=== PATIENT | female | born 1990 | race Caucasian/White ===

== ENCOUNTER 2024-08-16 20:47 | Emergency (ER) | payer OTHER, SELFPAY ==
[2024-08-16 21:19] VITALS: BP 135/81; PULSE 84; RESP 19; TEMP 36.6; O2SAT 99; BMI 31.2
== END 2024-08-17 01:55 | disposition left against medical advice (07) ==
PROVIDERS: Emergency Provider Emergency Medicine
DX: M79.645 Pain in left finger(s) (principal)
CPT/HCPCS: 99281; 99284

== ENCOUNTER 2025-01-04 18:37 | Emergency (ER) | payer OTHER, SELFPAY ==
--- NOTE | ~2025-01-04 | CT_ITS ---
CLINICAL HISTORY: severe generalized abdominal pain and tenderness CT abdomen and pelvis with contrast Comparison: None provided Findings: No consolidation or effusion. The gallbladder and solid organs are within normal limits. No renal stones. No bowel obstruction, pneumoperitoneum, or pneumatosis. Normal appendix. There are a few scattered colonic diverticula, but no evidence of diverticulitis. Uterus and adnexa are unremarkable. No lytic or blastic bone lesions. No ascites. No retroperitoneal adenopathy. IMPRESSION: No acute findings. This document has been electronically signed by: Bhanu Rodriguez MD on 01/04/2025 21:41:32
[2025-01-04 18:48] VITALS: BP 130/88; PULSE 64; RESP 20; TEMP 37.1; O2SAT 99; BMI 26.4
[2025-01-04 19:10] LABS: MANUAL DIFF FLAG NO
[2025-01-04 19:11] LABS: Hematocrit 35.1 % (37.0-47.0); Hemoglobin 11.9 g/dl (12.0-16.0); Imm Gran Abs Auto 0.01 X10*3/uL (0.00-0.03); Imm Gran Pct Auto 0.2 % (0.0-0.4); Lymphocytes Absolute Auto 2.9 X10*3/uL (1.2-4.9); Mean Corpuscular HGB Conc 33.9 g/dl (31.0-35.0); Mean Corpuscular Hemoglobin 26.3 pg (27.0-33.0); Mean Corpuscular Volume 77.5 fL (80.0-98.0); NRBC Abs Auto 0.000 X10*3/uL (0.0-0.012); NRBC Pct Auto 0.0 /100WBC (0.0-0.2); Platelet Count 323 X10*3/uL (160-400); Red Blood Count 4.53 X10*6/uL (4.20-5.50); White Blood Count 5.7 X10*3/uL (4.8-10.8)
[2025-01-04 19:26] LABS: Alanine Aminotransferase 13 U/L (0-31); Albumin Level 4.1 g/dL (3.5-5.0); Alkaline Phosphatase 50 U/L (39-117); Anion Gap 9 (12-20); Aspartate Amino Transferase 19 U/L (5-31); Blood Urea Nitrogen 10 mg/dL (9-16); Calcium 8.2 mg/dL (8.4-10.2); Carbon Dioxide 23 mmol/L (22-29); Chloride 111 mmol/L (96-108); Creatinine Clr Calc Pharmacy 97.2; Estimated Glomerular Filt Rate > 60; Lipase 17 U/L (8-78); Potassium 3.3 mmol/L (3.3-5.1); Sodium 140 mmol/L (135-145); Total Protein 6.7 g/dL (6.5-8.0)
--- NOTE | 2025-01-04 19:44 | ED_ITS ---
HPI - General Adult General Chief complaint: Abdominal Pain Stated complaint: abd pain radiates to back Time Seen by Provider: 01/04/25 19:44 History of Present Illness ED Provider: Claudio ROACH narrative: The patient is a 34-year-old female who comes to the emergency room by ambulance stating that she developed severe pain in her abdomen yesterday. She feels the pain mostly in the right upper quadrant radiating to her back. She denies ever having had pain like this before. She has had nausea and vomiting. She does not think she is . Related Data Previous Rx's ?Medication ?Instructions ?Recorded famotidine 40 mg tablet 40 mg PO DAILY #30 tabs 12/07 07/01 ondansetron 4 mg disintegrating 4 mg PO Q6H PRN nausea and 01/04/25 tablet vomiting #10 tabs Allergies Allergy/AdvReac Type Severity Reaction Status Date / Time No Known Allergies Allergy Verified 01/04/25 18:49 [facility] Social History Social History Alcohol intake: former Substance Use Type: Marijuana Physical Exam ED Vital Signs: Vital Signs - 24 hr 01/04/25 18:48 01/04/25 21:18 01/04/25 22:12 Temperature 98.8 F 98 F Pulse Rate 64 65 65 Respiratory Rate 20 20 20 Blood Pressure 130/88 104/58 L 104/58 L Pulse Oximetry 99 99 99 Oxygen Delivery Method Room Air Room Air Room Air BMI result Body Mass Index 26.4 Const Other: The patient was lying prone on the stretcher. She had her eyes closed. She responded to verbal stimuli. She said that she was in a great deal of discomfort. She was occasionally moaning in discomfort. HENMT Other: The face is symmetrical. ?Mucous membranes moist. Eyes Other: Pupils are round equal, conjunctivae are clear, extraocular movements intact Neck Neck: Yes normal visual inspection and Yes full ROM Resp Effort & Inspection: normal respiratory effort Auscultation: clear to auscultation bilaterally Cardio Rate: regular rate Rhythm: regular rhythm Heart sounds: S1 normal heart sound present and S2 normal heart sound present GI Other: There was diffuse abdominal tenderness. I do not really feel there was any focal abdominal tenderness. No rebound or guarding. Skin Other: The skin is dry and unremarkable Neuro Other: The patient seemed distracted by her discomfort. She tended to keep her eyes closed. However she did not seem to have an altered mental status. Her cranial nerves seemed intact. She moves her extremities symmetrically. Extrem Other: There is no calf swelling or tenderness. No asymmetry. No peripheral edema. Medications Administered Discontinued Medications Generic Name Dose Route Start Last Admin Trade Name Funmilayo PRN Reason Stop Dose Admin Droperidol 1.25 mg 01/04/25 19:57 01/04/25 20:32 Droperidol 5 Mg/2 Ml Vial IVPUSH 01/04/25 19:58 1.25 mg ONCE ONE Administration Sodium Chloride 1,000 mls @ 999 mls/hr 01/04/25 20:00 01/04/25 22:12 Ns IV 01/04/25 21:00 Infused .Q1H1M JUDI Infusion Lactated Ringer's 1,000 mls @ 999 mls/hr 01/04/25 21:15 01/04/25 21:49 Lr IV 01/04/25 22:15 Not Given .Q1H1M JUDI Iohexol 100 ml 01/04/25 20:51 01/04/25 20:51 Iohexol 350 Mg/Ml 100 Ml Infus..Btl IV 01/04/25 20:52 85 ml ONCE ONE Administration Ketorolac Tromethamine 15 mg 01/04/25 19:57 01/04/25 20:32 Ketorolac Tromethamine 15 Mg/Ml Vial IVPUSH 01/04/25 19:58 15 mg ONCE ONE Administration Medical Decision Making Medical Decision Making [facility] Narrative: The patient is a 34-year-old woman who arrived by ambulance complaining of abdominal pain. She had a very histrionic presentation and was moaning loudly and pain. Her abdominal exam was very nonspecific. Labs are unremarkable with a normal white blood count with a lymphocyte predominance. Normal CRP. Negative test. Normal lipase. Normal LFTs. Urinalysis shows no ketones. No blood. She was treated symptomatically with IV ketorolac and droperidol. Also IV fluids. Given the degree of the the patient's reported pain I ordered a CT scan of the abdomen and pelvis that was negative. When I went to discuss the results with the patient she announced that she wanted to be discharged. She was therefore discharged with instructions to follow up with the regular doctor. I suspect that this may has been an episode of cannabis hyperemesis. Lab Data 01/04/25 19:06 01/04/25 19:06 Labs: Lab Results 01/04/25 01/04/25 Range/Units 19:06 22:00 WBC 5.7 (4.8-10.8) X10*3/uL RBC 4.53 (4.20-5.50) X10*6/uL Hgb 11.9 L (12.0-16.0) g/dl Hct 35.1 L (37.0-47.0) % MCV 77.5 L (80.0-98.0) fL MCH 26.3 L (27.0-33.0) pg MCHC 33.9 (31.0-35.0) g/dl RDW 13.6 (11.0-16.0) % Plt Count 323 (160-400) X10*3/uL MPV 8.9 L (9.4-12.3) fL Immature Gran % (Auto) 0.2 (0.0-0.4) % Neut % (Auto) 37.9 L (45-73) % Lymph % (Auto) 51.8 H (20-40) % [place] % (Auto) 8.6 (2-11) % Eos % (Auto) 1.1 (0-4) % Baso % (Auto) 0.4 (0-2) % Lymph # (Auto) 2.9 (1.2-4.9) X10*3/uL [place] # (Auto) 0.5 (0.1-1.2) X10*3/uL Eos # (Auto) 0.1 (0.0-0.4) X10*3/uL Baso # (Auto) 0.0 (0.0-0.2) X10*3/uL Abs Immat Gran (auto) 0.01 (0.00-0.03) X10*3/uL Absolute Neuts (auto) 2.2 (2.0-8.3) x10*3/uL Absolute Nucleated RBC 0.000 (0.0-0.012) X10*3/uL Nucleated RBC % (auto) 0.0 (0.0-0.2) /100WBC Sodium 140 (135-145) mmol/L Potassium 3.3 (3.3-5.1) mmol/L Chloride 111 H (96-108) mmol/L Carbon Dioxide 23 (22-29) mmol/L Anion Gap 9 L (12-20) BUN 10 (9-16) mg/dL Creatinine 0.87 (0.5-1.4) mg/dL Estim Creat Clear Calc 97.2 Estimated GFR > 60 Random Glucose 85 (60-115) mg/dL Calcium 8.2 L (8.4-10.2) mg/dL Total Bilirubin 0.2 (0.0-1.0) mg/dL AST 19 (5-31) U/L ALT 13 (0-31) U/L Alkaline Phosphatase 50 (39-117) U/L C-Reactive Protein 0.32 (< or = 0.50) mg/dL Total Protein 6.7 (6.5-8.0) g/dL Albumin 4.1 (3.5-5.0) g/dL Lipase 17 (8-78) U/L Beta HCG, Quant < 2 mIU/mL Urine Color Yellow Urine Appearance Clear Urine pH 8.5 (5.0-9.0) Ur Specific [place] >= 1.030 H (1.005-1.025) Urine Protein Negative (Neg-Trace) mg/dL Urine Glucose (UA) Negative (Negative) mg/dL Urine Ketones Negative (Negative) mg/dL Urine Blood Negative (Negative) Urine Nitrite Negative (Negative) Ur Leukocyte Esterase Trace H (Negative) Urine RBC 0-2 (0-2) /HPF Urine WBC 0-5 (0-5) /HPF Ur Squamous Epith Cells 3-5 (0-2) /HPF Urine Bacteria None Seen (None Seen) Hyaline Casts 0-2 (0-2) /LPF Discharge Plan Discharge Clinical Impression: Abdominal pain, Vomiting Patient Disposition: Home, Self-Care Additional Instructions: Your testing in the emergency room today seems very reassuring. No dangerous process seems to be at work. Your symptoms might be related to a stomach acid problem. I have sent a prescription for a medication called famotidine to your pharmacy. This medication reduce his stomach acid production. I would recommend taking this medication daily. I have also sent a prescription for a nausea medication. You may use ondansetron every 6 hours as needed for nausea. Please follow up with your regular doctor soon to discuss this episode further. Also please be aware that sometimes marijuana use can cause significant unpleasant abdominal symptoms. Return to the emergency room if significantly worse. Prescriptions: New famotidine 40 mg tablet 40 mg PO DAILY Qty: 30 0RF ondansetron 4 mg tablet,disintegrating 4 mg PO Q6H PRN (Reason: nausea and vomiting) Qty: 10 0RF Referrals: Antonio Gonzalez III, MD [Primary Care Provider, Medical] Interventions: ED Discharge Assessment Last Done: 01/04/25 22:12 Discharge Date/Time: 01/04/25 22:12 Print Language: Pakistani
[2025-01-04] MEDS: iohexoL 350 MG/ML 100 ML INFUS..BTL IV (20:51)
[2025-01-04 21:18] VITALS: BP 104/58; PULSE 65; RESP 20; O2SAT 99
[2025-01-04 22:11] LABS: Appearance Urine Clear; Glucose Urine UA Negative (Negative); PH 8.5 (5.0-9.0); Specific Gravity - Urine >= 1.030 (1.005-1.025); UMIC TRIGGER UACC YES
[2025-01-04 22:12] VITALS: BP 104/58; PULSE 65; RESP 20; TEMP 36.6; O2SAT 99
== END 2025-01-04 22:12 | disposition home or self-care (01) ==
PROVIDERS: Emergency Provider Emergency Medicine; PCP Internal Medicine
DX: R10.11 Right upper quadrant pain (principal); R11.2 Nausea with vomiting, unspecified; M54.50 Low back pain, unspecified; R10.2 Pelvic and perineal pain; Z79.899 Other long term (current) drug therapy
CPT/HCPCS: 36415; 74177; 80053; 81001; 83690; 84702; 85025; 86140; 96361; 96374; 96375; 99284; 99285; J1790; J1885; Q9967

== ENCOUNTER → 2025-01-04 20:28 | Outpatient (BNV) | payer OTHER, SELFPAY | PROVIDERS: Emergency Provider Emergency Medicine; PCP Internal Medicine; Visit Provider Radiology Diagnostic Radiology | DX: R10.84 Generalized abdominal pain (principal) | CPT/HCPCS: 74177 ==

== ENCOUNTER 2025-01-17 10:32 | Outpatient (AMB) | payer OTHER, SELFPAY ==
--- NOTE | 2025-01-17 10:57 | A.OFFVIS_ITS ---
Intake Visit Reasons: PNES, Migranes Allergies No Known Allergies Allergy (Verified 01/04/25 18:49) Medication List - Last Reconciled 01/17/25 by Adriane Bunn MD amitriptyline 10 mg PO BEDTIME ondansetron 4 mg PO Q6H PRN HPI Comments Details: This a 34-year-old womangetting headaches daily or every other day. Unable to cope with things. Needing a home [employer]. She started having spells which she calls seizures in 2017 and was finally diagnosed with the nonepileptic seizures in 2019.? She had MRIs, EEG, 24-hour EEG, ?and inpatient monitoring.? She was rec ently on Trileptal which made her feel worse and it has been stopped.? She says that she has the spells a few times a month where she feels ill when she wakes up and feels run down and tired and unfocused, has trouble with her thought processes,? and then during her so-called seizures, she has tensing up of her body shaking, twitching,? convulsing and can't talk.? Her jaw clenches, her right eye shuts?and her head feels like it's been hit by a hammer.? She can't read or understand.? The last one occurred 4 days ago.? They can be triggered by stress, loud noises,?and ?stimulation.? She also has migraine headaches which are quite disabling making her stay in bed for a day and is occur every 7-14 days.? She has no prescription for it.? Migraines started when she was about 16 years old.? They can be triggered by stress.? They're associated with photophobia, sonophobia, and intense nausea making them nonfunctional. She did not have anything done. Says she needs a [employer] to get things done. Has not started any meds. [facility] Medical History (Updated 01/17/25 @ 10:59 by Adriane Bunn MD) Memory change Migraine Social History Alcohol intake: former Substance Use Type: Marijuana Review of Systems Const Details: Sleep:? Difficulty getting to sleepadmits.? Difficulty maintaining sleepadmits.? Urge to move legsdenies.? Teeth grindingdenies.? Shouting or Kicking during sleep denies.? Abnormal behavior during sleepdenies.? Excessive sleepadmits.? Snoring denies.? Daytime sleepinessdenies. ???General/Constitutional:? Change in appetitedenies.? Chillsdenies.? Fatigueadmits.? Feverdenies.? Weight gaindenies.? Weight lossadmits. ???Ophthalmologic:? Blurred visiondenies.? Diminished visual acuitydenies. ???ENT:? Stuffinessdenies.? Decreased hearingadmits.? Dry mouthdenies.? Ear paindenies.? Nosebleeddenies.? Ringing in the earsadmits.? Sinus paindenies.? Sore throat denies.? Swollen glandsdenies. ???Endocrine:? Cold intolerancedenies.? Excessive thirstdenies.? Frequent urinationdenies.? Heat intolerancedenies. ???Respiratory:? Shortness of breathadmits.? Chest painadmits.? Coughdenies. ???Breast:? Breast lumpdenies.? Nipple dischargedenies. ???Cardiovascular:? Chest pain at restdenies.? Chest pain with exertiondenies.? Claudicationdenies .? Dizzinessdenies.? Fluid accumulation in the legsdenies.? Irregular heartbeat denies.? Palpitationsdenies. ???Gastrointestinal:? Abdominal paindenies.? Constipationdenies.? Diarrheadenies.? Difficulty swallowingdenies.? Heartburndenies.? Nauseaadmits.? Rectal bleedingdenies. ???Hematology:? Easy bruisingadmits.? Prolonged bleedingdenies. ???Genitourinary:? Frequent urinationdenies.? Urgencydenies.? Incontinencedenies.? Erectile Dysfunctiondenies. ???Musculoskeletal:? Neck painadmits.? Back painadmits.? Muscle achesadmits.? Painful jointsadmits.? Sciaticadenies.? Weaknessdenies. ???Podiatric:? Difficulty walkingdenies.? Foot numbnessdenies. ???Neurologic:? Difficulty swallowingdenies.? Balance difficultyadmits.? Coordinationnormal.? Difficulty speakingdenies.? Dizzinessadmits.? Faintingadmits.? Gait abnormality denies.? Headacheadmits.? Loss of strengthdenies.? Loss of use of extremity denies.? Low back paindenies.? Memory lossadmits.? Seizuresadmits.? Ticsdenies.? Tingling/Numbnessadmits.? Transient loss of visiondenies.? Tremordenies. ???Psychiatric:? Anxietyadmits.? Auditory/visual hallucinationsadmits.? Delusionsadmits.? Depressed moodadmits.? Stressorsadmits.? Substance abusedenies.? Suicidal thoughtsadmits. Physical Exam Neuro Other: Neurological: Abnormal neurological findings:??none.?Mental Status:??alert and oriented X 3,?Normal attention, orientation, memory and affect.?Cranial Nerves:??Pupils are equal, round and reactive to light. Fundoscopy shows normal disc bilaterally. External occular muscles are intact. Visual cotto are full, no ptosis. Face is symmetrical, no facial weakness or droop. Facial sensations are normal. Tongue protrudes in midline. Palate elevates symmetrically. Shoulder shrugging is normal..?Motor Examination:??Normal muscle tone, bulk and strength,?No atrophy or fasciculations,?No drift of the extended upper extremities,?Deep tendon reflexes are 2+?,?Plantars are flexor?.?Motor Strength:?Proximal Muscles (out of 5):5Distal Muscles (out of 5):5Neck Flexors (out of 5):5Neck Extensors (out of 5):5Deltoid (out of 5):5Biceps (out of 5):5Triceps (out of 5):5Serratus Anterior (out of 5):5Wrist Extensors (out of 5):5APB (out of 5):5Finger Spread (out of 5):5Ileopsoas (out of 5):5Quadriceps (out of 5):5Hamstrings (out of 5):5Tibialis Anterior (out of 5):5Peronei (out of 5):5EDB (out of 5):5Gastrocnemius (out of 5):5Straight Leg Raising:??90 degrees.?Sensory Exam:??Normal light touch, temperature, pinprick, vibration and joint-position sensations?,?Rhomberg sign is absent.?Coordination:??no ataxia,?no titubation,?[id number], [id number] test and rapid alternating movements were normal.?Gait Exam:??Within normal limits.?Cerebellar Signs:??[id number] and [id number] is normal,?no dysdiadochokinesia?.?Extrapyramidal System:??No tremor, rigidity with normal facial expressions,?No bradykinesia, no bradyphrenia. Normal arm swing and posture. No propulsion or retropulsion.?Speech:??Normal,?no dysphasia or dysarthria..? Mini Mental Status Exam: Level of Consciousness:??Alert.?Orientation:??Knows correct year, month, date, day and season,?Knows correct city, county and state. Knows correct location and floor.?Registration:??Able to register 3 objects.?Attention:??Serial 7's performed accurately.?Recall:??Able to recall 3 out of 3 objects.?Language:??Normal spontaneous speech, fluency, repetition,naming, comprehension, reading and writing.?Total Score:??30/30.? General Examination: GENERAL APPEARANCE:??normal,?in no acute distress .?HEAD:??normocephalic,?atraumatic.?EYES:??sclera non-icteric,?conjunctiva clear.?EARS:??auditory canal clear,?tympanic membrane intact, clear.?NOSE:??no lesions.?ORAL CAVITY:??gums normal,?mucosa moist,?no lesions.?THROAT:??clear.?NECK/THYROID:??no cervical lymphadenopathy,?thyroid normal,?neck supple, full range of motion,?no carotid bruit.?SKIN:??no rashes,?no significant birthmarks.?HEART:??S1, S2 normal,?no murmurs.?LUNGS:??clear anteriorly and posteriorly.?CHEST:??no gross rib deformity,?clear to auscultation.?BACK:??normal exam of spine.?EXTREMITIES:??no edema.?PERIPHERAL PULSES:??normal.?PSYCH:??alert, oriented,?cognitive function intact,?cooperative with exam.? 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 Start SUMAtriptan Succinate Tablet, 100 MG, 1 tablet at onset of migraine , may take second dose at least 2 hours after first dose up to 2 tablets per day as needed, Orally, as directed, 30 days, 9, Refills 5 ??? Start Ondansetron HCl Tablet, 4 MG, 1 tablet as needed for nausea, Orally, Once a day As needed, 30 days, 20 Tablet Medications: New topiramate 50 mg PO BID 60 tabs 4RF amitriptyline 20 mg (2 x 10 mg) PO BEDTIME 60 tabs 5RF sumatriptan succinate do not exceed 2 doses per 24 hrs 100 mg PO Q4H PRN 9 tabs 5RF Migraine Headache 30 days Coding Level of Care Code Est Pt Level 4 (42036) Diagnoses Non-epileptic convulsion R56.9 Migraine G43.909 Memory change R41.3
== END 2025-01-17 11:09 | disposition home or self-care (01) ==
LOC: HO.HSM 10:32
PROVIDERS: PCP Internal Medicine; Referring Provider Internal Medicine; Visit Provider Psychiatry & Neurology Neurology
DX: R56.9 Unspecified convulsions (principal); G43.909 Migraine, unspecified, not intractable, without status migrainosus; R41.3 Other amnesia
CPT/HCPCS: 99214

== ENCOUNTER → 2025-01-17 10:32 | Outpatient (BNVA) | payer OTHER, SELFPAY | PROVIDERS: PCP Internal Medicine; Referring Provider Internal Medicine; Visit Provider Psychiatry & Neurology Neurology | DX: G43.009 Migraine without aura, not intractable, without status migrainosus (principal); R41.3 Other amnesia; R56.9 Unspecified convulsions | CPT/HCPCS: 99212 ==

== ENCOUNTER 2025-04-20 09:56 | Outpatient (AMB) | payer OTHER, SELFPAY ==
--- OUTSIDE RECORDS SUMMARY | 2025-04-17 08:45 | XMS_ITS | Encounter Summary ---
Author Organization [facility] Address [address] [place] [address] Care Team Providers Care Flower Shop Laborer/Designer Name Role Phone Antonio Gonzalez MD Primary Care Provider [phone] Reason for Visit * Therapy (Routine) - Authorized Specialty Diagnoses / Procedures Referred By Medina plata Referred To Contact Occupational Therapy Diagnoses Pain of right hand Bilateral hand numbness Emma Jean Baptiste PA Phone: tel: fax: Referral ID Status Reason Start Date Expiration Date Visits Requested Visits Authorized [id number] Authorized Consult and Treat 03/30/2025 03/30/2026 20 20 Encounter Details Date Type Department Care Team ([facility] st Contact Info) Description 04/17/2025 8:45 AM EST Treatment [facility] Occupational Therapy [address] [place] [phone] Cookie Otero COTA Pain of right hand (Primary Dx); Bilateral hand numbness Social History Tobacco Use Types Packs/Day Years Used Date Smoking Tobacco: Former Cigarettes 30.7 S tarted: 1994 Smokeless Tobacco: Never Alcohol Use Standard Drinks/Week Comments Yes 3.3 (1 standard drink = 0.6 oz p ure alcohol) Housing Instability Answer Date Recorde d Are you worried that in the next 2 months you may not have stable housing? No 06/13/2024 Health Literacy Answer Date Recorded How often do you need to hav e someone help you when you read instructions, pamphlets, or other written material from your doctor or pharmacy? Sometimes 06/13/2024 Caregiver: How often do you need to have someone help you when you read instructions, pamphlets, or other written material from your doctor or pharmacy? Not on file 06/13/2024 Financial Risk Answer Date Recorded How hard is it for you to pa y for the very basics like food, housing, medical care, and air conditioning / heating? Somewhat hard 06/13/2024 Transportation Answer Date Recorded Has the lack of transportati on kept you from meetings, work, or from getting things needed for daily living? Yes Has the lack of transportati on kept you from medical appointments or from getting medications? Yes 06/13/2024 Social Isolation Answer Date Recorded How often do you feel lonely or isolated from those around you? Sometimes 06/13/2024 Food Risk Answer Date Recorded Within the past 12 months we worried whether our food would run out before we got money to buy more. Never true 06/13/2024 Within the past 12 months th e food we bought just didn't last and we didn't have money to get more. Never true 06/13/2024 Dependent Care Answer Date Recorded Do you need help finding or paying for care for your loved ones. For example, child therapist or elderly care for an older adult? No 06/13/2024 Education Answer Date Recorded Do you think completing more education or training, like finishing a GED, going to college, or learning a trade, would be helpful for you? Yes 06/13/2024 Employment and Income Answer Date Recor ded During the last four weeks, have you been actively looking for work? No 06/13/2024 Living Situation Answer Date Recorded What is your living situation? Unrecognized valu e 06/13/2024 Comments No Sex and Gender Information Value Date Recorded Sex Assigned at Female 01/23/2025 11:01 AM EDT Legal Sex Female 2:55 AM EST Gender Identity Female 01/23/2025 11:01 AM EDT Sexual Orientation Straight 03/30/2025 12 :04 PM EDT documented as of this encounter Progress Notes * BENI Dumont - 04/17/2025 8:45 AM EST [facility] - Outpatient OCCUPATIONAL THERAPY DAILY TREATMENT NOTE Date: 04/17/2025 Visit Number: 3 Patient Name: Laura Joshua : 1990 Age: 34 y.o. Gender: female Diagnosis: No diagnosis found. Date of Onset: 03/30/2025 Referring Provider: Emma Jean Baptiste PA Insurance: Payor: [employer] [facility] [email or web address] MEDICARE / Plan: [facility] [employer] CARE / Product Type: *No Product type* / Patient identified by: BENI Dumont Language: Speaks and understands Icelandic as preferred language with no guest service agent required Allergies: is allergic to acerola and other. Precautions: Pt has a seizure history SUBJECTIVE Subjective Report: The pain varries Pain: 09/14 TREATMENT INTERVENTION Procedures: 50% pulsed US done with .5 w/cm2 to decrease inflammation and promote healing at the thumb MP area There ex AROM for thumb abd, ext, circles and opposition 2X10 added to HEP Fluidotherapy for 15 min for ROM and desensitization Pain Reassessment: unchanged Assessment/Response To Treatment: Good Patient Education: Education provided: Yes Education Provided To: Patient utilizing Explanation mode(s) of education Response to Education: Good PLAN POC Development/Review: No Change in the Plan of Care; Participants: Patient Equipment Recommended: none; Equipment Provided: none Total Treatment Time: 45 Documentation completed by BENI Dumont * BENI Dumont - 04/17/2025 8:45 AM EST [facility] - Outpatient OCCUPATIONAL THERAPY DAILY TREATMENT NOTE Date: 04/17/2025 Visit Number: 3 Patient Name: Laura Joshua : 1990 Age: 34 y.o. Gender: female Diagnosis: ICD-10-CM ICD-9-CM 1. Pain of right hand M79.641 729.5 2. Bilateral hand numbness R20.0 782.0 Date of Onset: 03/30/2025 Referring Provider: Emma Jean Baptiste PA Insurance: Payor: [employer] MEDICARE / Plan: [facility] ONE CARE / Product Type: *No Product type* / Patient identified by: BENI Dumont Language: Speaks and understands Icelandic as preferred language with no guest service agent required Allergies: is allergic to acerola and other. Precautions: Pt has a seizure history SUBJECTIVE Subjective Report: The pain varries Pain: 4/10 TREATMENT INTERVENTION Procedures: 50% pulsed US done with .5 w/cm2 to decrease inflammation and promote healing at the thumb MP area There ex AROM for thumb abd, ext, circles and opposition 2X10 added to HEP Fluidotherapy for 15 min for ROM and desensitization Pain Reassessment: unchanged Assessment/Response To Treatment: Good Patient Education: Education provided: Yes Education Provided To: Patient utilizing Explanation mode(s) of education Response to Education: Good PLAN POC Development/Review: No Change in the Plan of Care; Participants: Patient Equipment Recommended: none; Equipment Provided: none Total Treatment Time: 45 OT Therapeutic Procedures Time Entry Therapeutic Exercise Time Entry: 37 OT Modalities Time Entry Ultrasound Time Entry: 8 Documentation completed by BENI Dumont documented in this encounter Plan of Treatment Upcoming Encounters Date Type Department Care Team (Late st Contact Info) Description 04/24/2025 8:45 AM EST Treatment [facility] Occupational Therapy [address] [place] [phone] Cookie Otero COTA 04/26/2025 1:00 PM EST Treatment [facility] Occupational Therapy [address] [phone] Pat Black OT 06/04/2025 10:00 AM EST Office Visit Orthopedic Surgery [facility] [address] [phone] Emma Jean Baptiste PA [address] [phone] 06/18/2025 1:30 PM EST Office Visit Adult Medicine [facility] [address] [place] [phone] Keri Saba LOCOMOTIVE FIRER [address] [place] [address] documented as of this encounter Goals Goal Patient Goal Type Associated Problems Recent Progress Patient-Stated? Author OT pt goal General Yes Pat Black OT Note: To reduce pain in her right thumb area and gain strength to perform her job and home tasks easier and more efficiently OT STGs 6 visits General On track( 025 2:18 PM EST) Yes Pat Black OT Note: 1- pt will report increased function and decrease in symptoms as seen by at least a 10 point improvement in her QD score 2- pt will demo at least 5# increase in destination imagination coordinator strength B hands to be able to open containers easier 3- pt will demo a 3# increase in her pinch strength in B hands to be able to open packages 4- pt will demo at least one muscle grade increase throughout R UE to be able to reach and put clothes up on the rack. OT LTGs 12 visits General Yes Pat Black OT Note: 1- pt will report increased function and decrease in symptoms as seen by a QD of less than or equal to 20 2- pt will demo at least 25# destination imagination coordinator strength in her R and 35# with her L hand to be able to open containers and packages 3- pt will demo a #5 pound increase in her pinch strength to be able to open the pants hangers to hang clothing at work 4- pt will demo at adequate strength in R UE to be able to hang clothes and put dishes away with her R UE documented as of this encounter Visit Diagnoses Diagnosis Pain of right hand- Primary Bilateral hand numbness Disturbance of skin sensation documented in this encounter Additional Health Concerns Assessment Noted Time PHQ-9 Depression Total Score: 18 025 9:23 AM EST documented as of this encounter Care Teams Flower Shop Laborer/Designer Relationship Specialty Start Date End Date Antonio Gonzalez MD [address] [place] [phone] PCP - General Internal Medicine 01/13/19 documented as of this encounter
--- OUTSIDE RECORDS SUMMARY | 2025-04-19 08:45 | XMS_ITS | Encounter Summary ---
Author Organization [facility] Address [address] [place] [address] Care Team Providers Care Medical Office Scheduler Name Role Phone Antonio Gonzalez MD Primary Care Provider [phone] Reason for Visit * Therapy (Routine) - Authorized Specialty Diagnoses / Procedures Referred By Medina plata Referred To Contact Occupational Therapy Diagnoses Pain of right hand Bilateral hand numbness Emma Jean Baptiste PA Phone: tel: fax: Referral ID Status Reason Start Date Expiration Date Visits Requested Visits Authorized [id number] Authorized Consult and Treat 03/30/2025 03/30/2026 20 20 Encounter Details Date Type Department Care Team ([facility] st Contact Info) Description 04/19/2025 8:45 AM EST Treatment [facility] Occupational Therapy [address] [place] [phone] Cookie Otero COTA Pain of right hand [...] care for your loved ones. For example, early childhood assistant or elderly care for an older adult? [...] encounter Progress Notes * BENI Dumont - 04/19/2025 8:45 AM EST [facility] - Outpatient OCCUPATIONAL THERAPY DAILY TREATMENT NOTE Date: 04/19/2025 Visit Number: 4 Patient Name: Laura Joshua : 1990 Age: 34 y.o. Gender: female Diagnosis: No diagnosis found. Date of Onset: 03/30/2025 Referring Provider: Emma Jean Baptiste PA Insurance: Payor: [facility] MEDICARE / Plan: [facility] ONE CARE / Product Type: *No Product type* / Patient identified by: BENI Dumont Language: Speaks and understands Romanian as preferred language with no flattening machine operator required Allergies: is allergic to acerola and other. Precautions: Pt has a seizure history SUBJECTIVE Subjective Report: I noticed the bruise yesterday. Pain: 10 OBJECTIVE Pt had a bruise on base of the thumb and on the top of the hand. TREATMENT INTERVENTION Procedures: Attemted U/S this date , per pt reports increase discomfort discontinued Gentle retrograde massage. To decrease swelling thumb and hand Gentle AROM of thumb as tolerated pt had difficulty today due to discomfort./pain Fluido for 20 minutes per pt it helped with the pain Pain Reassessment: after fluido pain decreased back to 4/10 Assessment/Response To Treatment: Pt unable to tolerate U/S this date due to increase discomfort. Per pt . I may have hit it , I have been so busy this week. Patient Education: Education provided: Yes Education Provided To: Patient utilizing Explanation mode(s) of education Response to Education: Good PLAN POC Development/Review: No Change in the Plan of Care; Participants: Patient Equipment Recommended: none; Equipment Provided: none Total Treatment Time: 35 Documentation completed by BENI Dumont documented in this encounter Plan of Treatment Upcoming Encounters Date Type Department Care Team (Late st Contact Info) Description 04/24/2025 8:45 AM EST [facility] [address] [phone] Cookie Otero COTA 04/26/2025 1:00 PM EST [facility] [address] [facility] [address] [place] [phone] Pat Black OT 06/04/2025 10:00 AM EST Office Visit [facility] [address] [place] [phone] Emma Jean Baptiste PA [address] [place] [phone] 06/18/2025 1:30 PM EST Office Visit Adult [facility] [address] [place] [phone] Keri Saba NP [address] [place], [place] documented as of this encounter Goals Goal [...] will demo at least 5# increase in equal opportunity specialist strength B hands to be able to [...] 2- pt will demo at least 25# equal opportunity specialist strength in her R and 35# with [...] documented as of this encounter Care Teams Medical Office Scheduler Relationship Specialty Start Date End Date Antonio Gonzalez MD [address] [place] [phone] PCP - General Internal Medicine 01/13/19 documented as of this encounter
--- NOTE | 2025-04-20 09:59 | A.OFFVIS_ITS ---
Intake Visit Reasons: 3m Allergies No Known Allergies Allergy (Verified 04/20/25 10:03) Medication List - Last Reconciled 04/20/25 by Jessy Bingham CNP amitriptyline 10 mg PO BEDTIME aripiprazole 2 mg PO DAILY dextroamphetamine-amphetamine 10 mg 1 tab PO BID ondansetron 4 mg PO Q6H PRN sumatriptan succinate 100 mg PO Q4H PRN topiramate 50 mg PO BID HPI Comments Details: 34-year-old woman with migraines since she was about 16 years old who started having spells, which she calls ?seizures? in 2018, diagnosed with non-epileptic seizures in 2019. She had MRIs, EEG, 24-hour EEG, and in-patient monitoring. She says when spells happen, she feels ill when she wakes up, feeling run down, tired, unfocused, and has trouble with her thought process. During her so-called seizures, she has tensing up of her body, shaking, twitching, convulsing, jaw clenches, right eye shuts, head feels like it has been hit by a hammer, and she cannot talk, read, or understand. Spells happened a few times a month. They can be triggered by stress, loud noises, and stimulation. She tried Trileptal which made her feel worse, and it was stopped. Migraines were happening every 7-14 days and were associated with photophobia, sonophobia, and intense nausea, making her non-functional and were quite disabling, making her stay in bed for about a day. They can be triggered by stress. She was doing okay. She was taking topiramate twice a day, no medication side effects. Migraines were better and not as frequent, down to about 1-2x/month. She had some mild headaches. Her ?seizures? have also slowed down and were ?small? episodes, less intense. Her last episode was about a month ago. She was going to the gym with her boyfriend. Stress has been better. 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 [facility] Medical History (Updated 04/20/25 @ 10:02 by Jessy Bingham CNP) Memory change Migraine Social History Alcohol intake: former Substance Use Type: Marijuana Review of Systems Const Denies chills, Denies daytime sleepiness, Reports difficulty sleeping, Reports fatigue, Denies fever(s), Denies frequent falls, Reports headache(s), Denies increased appetite, Denies poor appetite, Denies snoring, Denies weakness, Denies weight gain and Denies weight loss Eyes Denies loss of vision ENT Denies vertigo, Reports dizziness, Reports headache(s) and Reports neck pain Card Denies chest pain at rest, Denies chest pain with activity, Denies syncope, Denies leg edema, Denies palpitations, Reports dyspnea and Denies dyspnea on exertion Resp Denies cough, Reports dyspnea, Denies dyspnea on exertion and Denies snoring GI Denies abdominal pain, Denies constipation, Denies heartburn, Denies diarrhea and Denies nausea Denies urinary frequency, Denies urinary incontinence and Denies urinary urgency Musc Denies abnormal gait, Reports back pain, Reports myalgias, Reports arthralgias, Reports neck pain, Reports numbness and Reports tingling Neuro Denies abnormal gait, Denies vertigo, Reports dizziness, Denies syncope, Denies frequent falls, Reports headache(s), Denies lack of coordination, Denies loss of vision, Reports memory loss, Reports numbness, Denies Other visual disturbances, Denies restless legs, Reports seizure-like activity, Reports tingling, Denies paresthesias, Denies tremor(s), Denies weakness and Reports other (balance difficulty) Psych Reports anxiety, Reports depression, Denies auditory hallucinations, Reports memory loss and Denies visual hallucinations Endo Reports fatigue and Denies palpitations Physical Exam Const Other: General Appearance:? normal, in no acute distress. Heart:? S1, S2 normal, no murmurs. Lungs:? clear anteriorly and posteriorly. Musculoskeletal:? normal. Extremities:? no edema. Psych:? alert, oriented, cognitive function intact, cooperative with exam. Neuro Other: Abnormal Neurological Findings:?none.? Mental Status: alert and oriented X 3. Normal attention, orientation, memory, and affect. Cranial Nerves: Pupils are equal, round, and reactive to light. External ocular muscles are intact. Visual cotto are full, no ptosis. Face is symmetrical, no facial weakness or droop. Facial sensations are normal. Tongue protrudes in midline. Palate elevates symmetrically. Shoulder shrugging is normal Motor Examination: Normal muscle tone, bulk and strength. No atrophy or fasciculations. No drift of the extended upper extremities. DTR 2+. Plantars are flexor. Sensory Exam: Normal light touch, temperature, pinprick, vibration, and joint- position sensations. Rhomberg sign is absent. Coordination: No ataxia. No titubation. Gait Exam: Within normal limits. Cerebellar Signs: [id number] is okay. Extrapyramidal System: No tremor, rigidity with normal facial expressions. No bradykinesia. No bradyphrenia. Normal arm swing and posture. No propulsion or retropulsion. Speech: Normal. Assessment & Plan Assessment & Plan (1) Migraine: Code(s): G43.909 - Migraine, unspecified, not intractable, without status migrainosus Category: Medical Qualifiers: Migraine type: unspecified Status migrainosus presence: without status migrainosus Intractability: not intractable Qualified Code(s): G43.909 - Migraine, unspecified, not intractable, without status migrainosus Plan: Continue topiramate 50mg 1 tablet twice a day. Continue sumatriptan 100mg 1 tablet as needed for migraine. Continue ondansetron 4mg 1 tablet as needed for nausea/vomiting #20 for 30 days. (2) Non-epileptic convulsion: Code(s): R56.9 - Unspecified convulsions Category: Medical Qualifiers: Convulsion type: unspecified Qualified Code(s): R56.9 - Unspecified convulsions (3) Memory change: Code(s): R41.3 - Other amnesia Category: Medical Plan . Coding Level of Care Code Est Pt Level 4 (75570) Diagnoses Migraine without status migrainosus, not intractable, unspecified migraine type G43.909 Migraine type: unspecified Status migrainosus presence: without status migrainosus Intractability: not intractable Convulsions, unspecified convulsion type R56.9 Convulsion type: unspecified Memory change R41.3
--- OUTSIDE RECORDS SUMMARY | 2025-04-20 11:36 | XMS_ITS | Data Portability ---
Author Organization [facility] [facility], [facility] Address [address] [place] [phone] Care Team Providers Care Departmental Secretary Name Role Phone HIM CCA OTHER Assessment No assessment recorded. Plan of Treatment Reminders Order Date Submit Date Provider Last Modified By Organization Details Last Modified Time Details Appointments None record ed. Lab None record ed. Referral None record ed. Procedures None record ed. Surgeries None record ed. Imaging None record ed. Medication Orders None record ed. Patient TargetsNo targets recorded. Patient InstructionsNo instructions recorded. Reason for Referral None Reported. Medical Equipment None Reported. Medications Name Sig Start Date Stop Date Status Note LastModified by Organization Details LastModified Time cetirizine 10 mg tablet TAKE 1 TABLET BY MOUTH EVERY DAY active Not Available Not Available No t Available valacyclovir 1 gram tablet TAKE 2 TABLETS BY MOUTH EVERY 12 HOURS active Not Available Not Available No t Available ondansetron HCl 4 mg tablet TAKE 1-2 TABLETS BY MOUTH EVERY 8 HOURS NEEDED FOR NAUSEA. active Not Available Not Available No t Available metronidazole 500 mg tablet TAKE 1 TABLET BY MOUTH 2 TIMES A DAY FOR 7 DAYS active Not Available Not Available No t Available oxcarbazepine 300 mg tablet TAKE 1 TABLET BY MOUTH TWICE A DAY active Not Available Not Available No t Available amitriptyline 10 mg tablet TAKE 1-2 TABLETS BY MOUTH AT BEDTIME active Not Available Not Available No t Available triamcinolone acetonide 0.1 % topical ointment APPLY A THIN LAYER TO AFFECTED AREA Wednesday AND WEDNESDAY NIGHT active Not Available Not Available No t Available dextroampheta mine-amphetam ine ER 10 mg 24hr capsule,exten d release TAKE 1 CAPSULE BY MOUTH EVERY DAY IN THE MORNING active Not Available Not Available No t Available ibuprofen 600 mg tablet TAKE 1 TABLET BY MOUTH EVERY 6 HOURS NEEDED FOR PAIN FOR UP TO 30 DAYS. active Not Available Not Available No t Available naproxen 500 mg tablet TAKE 1 TABLET BY MOUTH 2 TIMES DAILY (WITH MEALS) FOR 360 DAYS. active Not Available Not Available No t Available dextroampheta mine-amphetam ine ER 15 mg 24hr capsule,exten d release TAKE 1 CAPSULE BY MOUTH EVERY DAY IN THE MORNING active Not Available Not Available No t Available Vitals Date Recorded Body weight Oxygen saturation Oxygen saturation in Arterial blood by Pulse oximetry Respiratory rate Heart rate Body temperature Body weight Respiratory rate Oxygen saturation Oxygen saturation in Arterial blood by Pulse oximetry Heart rate Body temperature Provider Name and Address Organization Details Last Updated DateTime 3 88286.6 g 98 % 98 % 18 /min 86 /min 98 [degF] 13545.6 g 18 /min 98 % 98 % 86 /min 98 [degF] 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 3 13:59:10 Date Recorded Systolic And Diastolic Systolic And Diastolic Provider Name and Address Organization Details Last Updated DateTime 11/28/2022 128/82 mm[Hg] 128/82 mm[Hg] Not Available [facility] 11/28/2022 13:59:10 Date Recorded Respiratory rate Oxygen saturation Oxygen saturation in Arterial blood by Pulse oximetry Body temperature Heart rate Heart rate Oxygen saturation Oxygen saturation in Arterial blood by Pulse oximetry Respiratory rate Body temperature Systolic And Diastolic Systolic And Diastolic Provider Name and Address Organization Details Last Updated DateTime 2 14 /min 96 % 96 % 98.3 [degF] 74 /min 74 /min 96 % 96 % 14 /min 98.3 [degF] 132/92 mm[Hg] 132/92 mm[Hg] Not Available [employer] [facility] 2 12:22:50 Social History None recorded. Functional Status None recorded. Mental Status None recorded. Family History Nothing Reported. Medical History No medical history recorded. Gynecological HistoryNo gynecological history recorded. Obstetrics History GPAL:G 0 P 0 0 0 0 Past Encounters Encounter ID Performer Location Encounter Start Date Encounter Closed Date Diagnosis/Indication Diagnosis SNOMED-CT Code Diagnosis ICD10 Code Diagnosis IMO Codes Diagnosis Note [id number] Thais Galdamez MD [facility] - [facility] [address] [place] [phone] 05/27/2022 11:56:08 05/29/2022 10:50:34 Dysuria 94261760 R30.0 Pt describing mild dysuria and vaginal spotting after sexual encounter 4d ago, slowly clearing without interventi on. UA clear. Did not use condom, denies vaginal pain, abdominal pain, fevers, chills, malodorous vaginal discharge. Advised monitoring for sx given risk for STI and testing as appropriat e. No current e/o UTI or STI, recommende d continued supportive care. [id number] Boo Guillen MD Main - [address] [phone] 11/28/2022 13:41:30 11/30/2022 10:04:18 Hot oil burn of skin 261820614 T30.0 Mild blistering . Advised not to pop blisters and let heal naturally. Discussed cool compresses . No active infection noted. Vitals stable. Recommend ointment and supportive care Health Concerns Section Related Observation LastModified by Organization Detai ls LastModified Time None Recorded Concern Status LastModified by Organization Details LastModified Time None Recorded Advance Directives Directive None Recorded Payers Insurance Date Sequence Insurance Name Policy Number Policy Mcgowan Covered Member ID Mcgowan Member ID Guarantor Name 11/28/2022 1 [facility] - DOS PRIOR TO 2022 - DUAL ELIGIBLE (MEDICARE REPLACEMENT/ADV ANTAGE - HMO) Laura Joshua [id number] Laura Johsua 07/17/2023 1 [facility] - DOS ON OR AFTER 2022 - DUAL ELIGIBLE - [employer] AND ONE CARE (MEDICARE REPLACEMENT/ADV ANTAGE - HMO) Laura Joshua [id number] Laura Joshua Notes Date Note Type Note Provider Name and Address Organization Details Recorded Time 05/27/2022 text/html [facility] Nursing Assessment: Reason For Request: UTI Patient Reports: Painful urination; Frequent and increased urination with flank pain; Painful urination with or without fever; Inability to fully empty bladder Chief Complaints: UTI/Pyelonephritis PMH: Other Allergies: Unknown Comments: Member c/o uti symptoms > painful urination since wednesday. Member had urgency since wednesday, today she is feeling better but would like to get seen. Member F/c/N/V/D. Member had pain/ frequency and bleeding ................... ................... ................... ................... ................... ................... ................... ........ Extractor And Wringer Operator Note: SC6 to above. Paramedics Dominic and Katelynn to above. On arrival 31 year old female at door. PT caox3 compplains of bloody discharge with urination, increased frequency and urge to urinate. Pt states she had vigorous intercourse with new partner just before symptoms started. Pt complains of URQ pain. Pt denies difficult urination, back pain or any other pain or complaint. Pt states symptoms have been subsiding in the last few days. Pt reports she believes blood is from trauma during sex and not a UTI. Abdomen soft, tender in URQ. Other cooley abdomen unremarkable. Urine sample obtained, pt coached to preform clean catch of sample. LAbs results to [facility] and in chart. [facility] instructs pt to continue hydrating and monitoring symptoms. Red plags and pot education discussed ................... ................... ................... ................... ................... ................... ................... ........ Disposition: Fulfilled Thais Galdamez MD [address] [facility],[address], [place], [phone], [employer] 05/27/2022 23:48:29 11/28/2022 text/html ROS as noted in the HPI [facility] Nursing Assessment: Reason For Request: Burnt by oil yesterday and is experiencing pain from blisters Chief Complaints: Pain Allergies: No Known Comments: Member calling in to place a referral, identified via /name. Member who was making fried chicken last night, dropped a piece of chicken in a mayers of oil and the oil splashed on her skin. Oil splattered to members left shoulder, under arm and chest, this is the area of most concern for the member, she also has walker/blisters to her stomach and right leg. Areas are dark purple, red, painful with blisters. Member would like to be evaluated. ................... ................... ................... ................... ................... ................... ................... ........ Extractor And Wringer Operator Note From Justin Comer: Pt presents A@Ox4. [facility] warm and dry. Pt c/o walker from hot oil that splattered on her left breast, midline abdomen and right leg. Burn on abdomen had small blister. No infection visible . Walker were purple in color. Pt sts burn on abdomen is painful. Pt denies CP SOB fever nausea. Baseline vitals assessed and recorded. Walker assessed . C contacted and pt advised to keep use antibacterial ointment and keep would dry and clean. Pt educated on signs that would indicate the ER. ................... ................... ................... ................... ................... ................... ................... ........ Disposition: Fulfilled Boo Guillen MD [address] [facility],[address], [place], [phone], [employer] NIELS 11/28/2022 17:01:15 OBGyn Episode No OBEpisode recorded.
--- OUTSIDE RECORDS SUMMARY | 2025-04-20 11:36 | XMS_ITS | Clinical Summary ---
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 neisseria gonorrhoeae by tma, thinprep (01/30/2025 4:30 PM EDT) Pathologist [facility] N. gonorrhoeae, RNA Probe Negative Negative LAB MICROBIOLOGY METHOD 02/02/2025 1:[address] [facility] Chlamydia, RNA Probe Negative Negative LAB MICROBIOLOGY METHOD 02/02/2025 1:[address] [facility] Brushing/Spatula Cervix uteri structure / Unknown 01/30/2025 4:30 PM EDT 02/01/2025 6:40 AM EDT us Sonya Virgen CNM LAB CYTOLOGY ORDERABLES Final Result Performing Organization Address City/[facility]/ZIP Co de Phone Number [facility] [address] [place] [address], [place] [phone] * HPV with reflex genotype (01/30/2025 4:30 PM EDT) HPV Negative Negative LAB MICROBIOLOGY METHOD 02/02/2025 2:[address] [facility] Brushing/Spatula Cervix uteri structure / Unknown 01/30/2025 4:30 PM EDT 02/01/2025 6:40 AM EDT us Sonya Virgen CNM LAB MOLECULAR DIAGNOSTICS ORDE RABLES Final Result Performing Organization Address [facility]/ZIP Co de Phone Number [facility] [address] [place] [address], [place] [phone] * Trichomonas vaginalis molecular study (01/30/2025 4:30 PM EDT) Trichomonas vaginalis Negative Negative LAB MICROBIOLOGY METHOD 02/02/2025 1:[address] [facility] Brushing/Spatula Cervix uteri structure / Unknown 01/30/2025 4:30 PM EDT 02/01/2025 6:40 AM EDT us Sonya Virgen CNM LAB BLOOD ORDERABLES Final Res ult [facility] [address] [place] [address], * Pap smear (01/30/2025 4:30 PM EDT) Interpretation Negative for intraepithelial lesion or malignancy 02/11/2025 9:[address] [facility] General Categorization Negative 02/11/2025 9:[address] [facility] Other Findings Shift in christofer suggestive of bacterial vaginosis 02/11/2025 9:[address] [facility] LMP 01/06/2025 02/11/2025 9:[address] [facility] Specimen Adequacy Satisfactory for evaluation, endocervical/lyon sformation zone component absent 02/11/2025 9:[address] [facility] Pap Methodology Liquid Based Pap Test 02/11/2025 9:[address] [facility] Disclaimer The Pap test is a screening test which carries an inherent false negative rate. These test results should be correlated with the patient's clinical findings and history. This Pap test was processed using an automated screening system. Technical cytopathology services provided by [facility], at [address] [place] [address] (CLIA # [id number]/Roseann Rehman MD, [employer] Pain[employer].) 02/11/2025 9:[address] [facility] Console Pap Interpretation Reported 02/11/2025 9:[address] [facility] Brushing/Spatula Cervix uteri structure / Unknown 01/30/2025 4:30 PM EDT 01/30/2025 4:30 PM EDT Sonya Virgen CNM LAB CYTOLOGY ORDERABLES Final Result [facility] [address] [place] [address], [place] [phone] * POC , urine manually resulted (01/30/2025 3:57 PM EDT) HCG, Ur POC Negative Negative POC hCG Int QC Pass? Yes Yes Urine Urine specimen obtained by clean catch procedure / Unknown 01/30/2025 3:57 PM EDT Sonya Virgen CN POINT OF CARE TEST ENTER/EDIT ORDERABLES Final Result * (ABNORMAL) Lipid panel with reflex to direct LDL (06/13/2024 10:08 AM EST) Pathologist [facility] Cholesterol 190 0 - 200 mg/dL LAB CHEMISTRY METHOD 06/13/2024 3:54 PM [facility] Triglycerides 64 0 - 150 mg/dL LAB CHEMISTRY METHOD 06/13/2024 3:54 PM [facility] HDL 72 >=40 mg/dL LAB CHEMISTRY METHOD 06/13/2024 3:54 PM [facility] LDL Calculated 105(H) 0 - 100 mg/dL LAB CHEMISTRY METHOD 06/13/2024 3:54 PM [facility] VLDL Cholesterol [place] 12.8 mg/dL LAB CHEMISTRY METHOD 06/13/2024 3:54 PM [facility] Non HDL Chol. (LDL+VLDL) 118 <145 mg/dL LAB CHEMISTRY METHOD 06/13/2024 3:54 PM [facility] Chol/HDL Ratio 2.6 0.0 - 4.4 LAB CHEMISTRY METHOD 06/13/2024 3:54 PM [facility] Blood Venous blood specimen / Unknown Venipuncture / Unknown 06/13/2024 10:08 AM EST 06/13/2024 10:08 AM EST us Antonio Gonzalez MD LAB BLOOD ORDERABLES Final Resu lt [facility] [address] [place] [address], * Depression Screening (01/23/2020) Depression Screening abstracted us Historical Provider HEALTH MAINTENANCE Final Result from Last 3 Months or Most Recently Relevant to Health Maintenance Insurance [facility] MEDICARE Member Subscriber Plan / Payer (Ef fective 2020-Present) Name:SONYA MARINO Relation to Subscriber:Self Name:Sonya Marino Payer ID:[id number] Group ID:[id number] Type:Not on file Address: [place] [address] [address] [id number] Care Teams Storage Battery Charger Relationship Specialty Start Date End Date Antonio Gonzalez MD [address] [place] [address] PCP - General Internal Medicine 01/13/19
== END 2025-04-20 10:26 | disposition home or self-care (01) ==
LOC: HO.HSM 09:57
PROVIDERS: PCP Internal Medicine; Visit Provider Registered Nurse
DX: G43.909 Migraine, unspecified, not intractable, without status migrainosus (principal); R56.9 Unspecified convulsions; R41.3 Other amnesia
CPT/HCPCS: 99214

== ENCOUNTER → 2025-04-20 09:56 | Outpatient (BNVA) | payer OTHER, SELFPAY | PROVIDERS: PCP Internal Medicine; Visit Provider Registered Nurse | DX: G43.909 Migraine, unspecified, not intractable, without status migrainosus (principal); R41.3 Other amnesia; R56.9 Unspecified convulsions | CPT/HCPCS: 99212 ==